=== PATIENT | female | born 1955 | race Caucasian/White ===

== ENCOUNTER → 2019-05-16 | Outpatient (REF) | payer MEDICAID ==
[~2019-05-16] MED LIST: BISO10TA14 PO; CALC1TAB26 PO; CLAR10CA3 PO; LOSA100T8 PO; SYNT88TA2 PO
[2019-05-16 16:46] LABS: BASO # 0.1 10^3/uL (0.0-0.2); BASO % 0.5 % (0.0-1.0); EOS # 0.1 10^3/uL (0.0-0.5); HEMATOCRIT 44.2 % (36.0-47.0); HEMOGLOBIN 14.5 g/dl (12.0-15.5); LYMPH # 3.1 10^3/uL (1.5-5.0); LYMPH % 24.3 % (24.0-44.0); MEAN CORPUSCULAR HGB CONC 32.8 g/dl (32.0-36.5); MEAN CORPUSCULAR VOLUME 97.6 fl (80.0-96.0); MONO # 0.6 10^3/uL (0.0-0.8); MONO % 4.6 % (0.0-5.0); NEUTROPHILS # 8.8 10^3/uL (1.5-8.5); NEUTROPHILS % 69.3 % (36.0-66.0); PLATELET COUNT, AUTOMATED 273 10^3/uL (150-450); RED BLOOD COUNT 4.53 10^6/uL (4.00-5.40); WHITE BLOOD COUNT 12.7 10^3/uL (4.0-10.0)
[2019-05-16 17:23] LABS: BLOOD UREA NITROGEN 18 MG/DL (7-18); CALCIUM LEVEL 9.9 MG/DL (8.8-10.2); CARBON DIOXIDE LEVEL 30 MEQ/L (21-32); CHLORIDE LEVEL 105 MEQ/L (98-107); CREATININE FOR GFR 0.78 MG/DL (0.55-1.30); FREE T4 1.34 NG/DL (0.76-1.46); GLOMERULAR FILTRATION RATE > 60.0 (>45); GLUCOSE, FASTING 83 MG/DL (70-100); POTASSIUM SERUM 4.1 MEQ/L (3.5-5.1); SODIUM LEVEL 140 MEQ/L (136-145); THYROID STIMULATING HORMONE 0.925 uIU/ML (0.358-3.740)
[2019-05-16 18:02] LABS: HEMOGLOBIN A1c 5.5 %
== END ==
LOC: M SFHCCLAY 10:23
PROVIDERS: ATTEND Family Medicine
DX: C49.A0 Gastrointestinal stromal tumor, unspecified site (principal); R59.0 Localized enlarged lymph nodes; E89.0 Postprocedural hypothyroidism; R35.8 Other polyuria; I10 Essential (primary) hypertension

== ENCOUNTER → 2019-05-21 | Outpatient (CLI) | payer MEDICAID ==
--- NOTE | 2019-05-21 12:47 | REP ---
INGUINAL ULTRASOUND: Inguinal ultrasound performed bilaterally. Reportedly, there is a palpable abnormality in the right inguinal region. There appear to be multiple inguinal lymph nodes bilaterally, but these are not significantly enlarged. Three subcentimeter lymph nodes in the right inguinal region are visualized, the largest measuring 9 x 3 x 4 mm and 8 x 4 x 5 mm. On the left, two lymph nodes are seen, the larger measuring 1.3 x 0.4 x 0.5 cm. IMPRESSION: Normal size inguinal lymph nodes bilaterally with normal morphology, all demonstrating fatty amada. Electronically Signed by Shivam Segura MD 05/22/2019 11:19 A
== END ==
LOC: M RAD 11:35
PROVIDERS: ATTEND Family Medicine
DX: R19.09 Other intra-abdominal and pelvic swelling, mass and lump (principal)

== ENCOUNTER → 2019-06-05 | Outpatient (CLI) | payer MEDICAID ==
[2019-06-07 14:22] LABS: HPV HYBRID CAPTURE II Negative (Negative)
== END ==
LOC: M SMT 14:38
PROVIDERS: ATTEND Obstetrics & Gynecology
DX: Z13.79 Encounter for other screening for genetic and chromosomal anomalies (principal)

== ENCOUNTER → 2019-06-13 | Outpatient (CLI) | payer OTHER ==
--- NOTE | 2019-06-13 12:32 | REPMRS ---
Patient History The patient states she had a clinical breast exam in 2018. Patient is postmenopausal, has history of small intestine cancer at age 62, and is nulliparous. Family history of lung cancer in maternal grandmother, lung cancer in mother, lung cancer in brother, ovarian cancer in paternal grandmother. Taking unspecified hormones beginning at age 26. Prior mammo done @ [facility] in 2012 3D TOMOSYNTHESIS WAS PERFORMED. [facility] lifetime risk for breast cancer is 10.1%. Digital Mammo Screening Bilat: June 13, 2019 - Exam #: [id number] Bilateral CC and MLO view(s) were taken. Technologist: Solange Montoya, Technologist Prior study comparison: 2013, bilateral mammogram, performed at [facility]. FINDINGS: The breast tissue is extremely dense which could obscure a lesion on mammography. There has been no change in the appearance of the mammogram from the prior studies. There is a moderate amount of residual fibroglandular tissue which is fairly symmetric. There is no interval development of dominant mass, areas of architectural distortion, or clustered microcalcification typical of malignancy. Assessment: BI-RADS/ACR category 2 mammogram. Benign Findings. Recommendation Routine screening mammogram of both breasts in 1 year (for women over age 40). This mammogram was interpreted with the aid of an FDA-approved computer-aided dectection system. Electronically Signed By: Shivam Segura MD 06/13/19 [id number]
== END ==
LOC: M RAD 10:25
PROVIDERS: ATTEND Obstetrics & Gynecology
DX: Z12.31 Encounter for screening mammogram for malignant neoplasm of breast (principal); Z80.42 Family history of malignant neoplasm of prostate; Z80.1 Family history of malignant neoplasm of trachea, bronchus and lung; Z85.068 Personal history of other malignant neoplasm of small intestine

== ENCOUNTER → 2019-06-25 | Outpatient (REF) | payer OTHER, MEDICAID ==
[~2019-06-25] MED LIST changes: +BISO10TA10 PO; -BISO10TA14 PO
[2019-06-25 16:43] LABS: BASO # 0.1 10^3/uL (0.0-0.2); BASO % 0.6 % (0.0-1.0); EOS # 0.1 10^3/uL (0.0-0.5); EOS % 0.9 % (0.0-3.0); HEMATOCRIT 44.8 % (36.0-47.0); HEMOGLOBIN 14.6 g/dl (12.0-15.5); LYMPH # 3.7 10^3/uL (1.5-5.0); LYMPH % 29.8 % (24.0-44.0); MEAN CORPUSCULAR HEMOGLOBIN 31.8 pg (27.0-33.0); MEAN CORPUSCULAR HGB CONC 32.6 g/dl (32.0-36.5); MEAN CORPUSCULAR VOLUME 97.6 fl (80.0-96.0); MONO # 0.6 10^3/uL (0.0-0.8); MONO % 5.1 % (0.0-5.0); NEUTROPHILS # 7.9 10^3/uL (1.5-8.5); NEUTROPHILS % 63.4 % (36.0-66.0); PLATELET COUNT, AUTOMATED 294 10^3/uL (150-450); RED BLOOD COUNT 4.59 10^6/uL (4.00-5.40); WHITE BLOOD COUNT 12.5 10^3/uL (4.0-10.0)
[2019-06-25 16:58] LABS: ALBUMIN 4.4 GM/DL (3.2-5.2); ALT/SGPT 27 U/L (12-78); BILIRUBIN,TOTAL 0.6 MG/DL (0.2-1.0); BLOOD UREA NITROGEN 14 MG/DL (7-18); CALCIUM LEVEL 9.8 MG/DL (8.8-10.2); CARBON DIOXIDE LEVEL 28 MEQ/L (21-32); CHLORIDE LEVEL 104 MEQ/L (98-107); CREATININE FOR GFR 0.75 MG/DL (0.55-1.30); GLOMERULAR FILTRATION RATE > 60.0 (>45); GLUCOSE, FASTING 80 MG/DL (70-100); POTASSIUM SERUM 4.4 MEQ/L (3.5-5.1); RHEUMATOID FACTOR QUANT < 10.0 IU/ML (<15.0); SODIUM LEVEL 137 MEQ/L (136-145); THYROID STIMULATING HORMONE 0.885 uIU/ML (0.358-3.740); TOTAL 25(OH) VITAMIN D 39.1 NG/ML (30.0-100.0); TOTAL PROTEIN 7.6 GM/DL (6.4-8.2); VITAMIN B12 LEVEL 737 PG/ML
[2019-06-25 16:59] LABS: FOLATE 10.7 NG/ML
[2019-06-25 17:00] LABS: HEMOGLOBIN A1c 5.2 %
[2019-06-25 17:18] LABS: ERYTHROCYTE SEDIMENTATION RATE 15 mm/hr (0-30)
== END ==
LOC: M LABDRAWC 16:03
PROVIDERS: ATTEND Psychiatry & Neurology Neurology
DX: G31.84 Mild cognitive impairment of uncertain or unknown etiology (principal)

== ENCOUNTER → 2019-07-03 | Outpatient (CLI) | payer OTHER ==
--- NOTE | 2019-07-04 05:07 | REP ---
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 Technique: Axial noncontrast images from the thoracic inlet to the upper abdomen with coronal and sagittal re-formations. Comparison: None. Findings: The bilateral lung dejesus are well-aerated and relatively clear. Minimal age-related scattered scarring is appreciated without evidence for consolidation, significant nodule or mass lesion. No pleural effusion. No pneumothorax. Tracheobronchial tree is patent. No obvious axillary, hilar, or mediastinal adenopathy. Mediastinum demonstrates relatively normal thoracic aorta, pulmonary vasculature and heart/pericardium. Musculoskeletal structures are intact and without focal abnormality. Impression: No acute mediastinal or pleuroparenchymal process. No evidence for metastatic disease. Electronically Signed by Jean Pierre River MD 07/04/2019 04:59 A
--- NOTE | 2019-07-04 05:13 | REP ---
Clinical: Gastrointestinal stromal tumor for restaging. Comparison: 04/05/2013. Technique: Axial noncontrast images of the abdomen with coronal and sagittal re-formations. Findings: Lung bases are clear. Liver, spleen, pancreas, gallbladder, right adrenal gland and bilateral kidneys are essentially normal for noncontrast evaluation. Left adrenal gland appears atrophic and calcified suggesting prior insult and stable compared to prior examination. Visualized enteric system is without obvious acute process, but gastric mucosal thickening to the proximal stomach cannot definitively be excluded. No ascites. No definite adenopathy. Abdominal aorta without aneurysm. Musculoskeletal structures are intact. Impression: 1. Cannot exclude gastric mucosal thickening to the proximal stomach which may warrant endoscopic evaluation and correlation. 2. No further acute abdominal pathology appreciated. Electronically Signed by Jean Pierre River MD 07/04/2019 05:05 A
== END ==
LOC: M RAD 08:42
PROVIDERS: ATTEND Internal Medicine Hematology & Oncology
DX: C49.A0 Gastrointestinal stromal tumor, unspecified site (principal)

== ENCOUNTER → 2019-07-09 | Outpatient (CLI) | payer OTHER ==
--- NOTE | 2019-07-09 10:57 | REP ---
Clinical: Pain with recent injury . Technique: AP, lateral, bilateral oblique views right ankle . Findings: No acute fracture or dislocation. Skeletal structures and joint spaces are intact and normal. Ankle mortise appears stable. No subcutaneous emphysema or radiodense foreign body. Impression: No acute fracture dislocation appreciated Electronically Signed by Jean Pierre River MD 07/09/2019 10:48 A
== END ==
LOC: M CLY 10:17
PROVIDERS: ATTEND Family Medicine
DX: M25.571 Pain in right ankle and joints of right foot (principal)

== ENCOUNTER → 2019-09-06 | Outpatient (REF) | payer OTHER | LOC: M LAB REF 10:53 | PROVIDERS: ATTEND Dermatology | DX: L72.0 Epidermal cyst (principal) ==

== ENCOUNTER → 2020-01-06 | Outpatient (REF) | payer OTHER ==
[~2020-01-06] MED LIST changes: -BISO10TA10 PO; +BISO10TA14 PO
[2020-01-06 17:42] LABS: FREE T4 1.53 NG/DL (0.76-1.46); THYROID STIMULATING HORMONE 1.3 uIU/ML (0.358-3.740)
== END ==
LOC: M SFHCCLAY 10:18
PROVIDERS: ATTEND Family Medicine
DX: R23.2 Flushing (principal); R68.89 Other general symptoms and signs

== ENCOUNTER → 2020-01-20 | Outpatient (REF) | payer OTHER ==
[~2020-01-20] MED LIST changes: +ASPI81TA85 PO; +CHAN1PAK13 PO; +FLUO20CA22 PO; +SYNT75TA PO
[2020-01-20 16:41] LABS: BASO # 0.1 10^3/uL (0.0-0.2); BASO % 0.5 % (0.0-1.0); EOS # 0.1 10^3/uL (0.0-0.5); EOS % 1.2 % (0.0-3.0); HEMATOCRIT 40.3 % (36.0-47.0); HEMOGLOBIN 13.3 g/dl (12.0-15.5); LYMPH % 27.2 % (24.0-44.0); MEAN CORPUSCULAR HEMOGLOBIN 31.4 pg (27.0-33.0); MEAN CORPUSCULAR VOLUME 95.3 fl (80.0-96.0); MONO # 0.4 10^3/uL (0.0-0.8); MONO % 3.6 % (0.0-5.0); NEUTROPHILS # 7.5 10^3/uL (1.5-8.5); NEUTROPHILS % 67.2 % (36.0-66.0); PLATELET COUNT, AUTOMATED 266 10^3/uL (150-450); RED BLOOD COUNT 4.23 10^6/uL (4.00-5.40); WHITE BLOOD COUNT 11.1 10^3/uL (4.0-10.0)
[2020-01-20 16:58] LABS: ALBUMIN 4.2 GM/DL (3.2-5.2); ALT/SGPT 36 U/L (12-78); BILIRUBIN,TOTAL 0.5 MG/DL (0.2-1.0); BLOOD UREA NITROGEN 15 MG/DL (7-18); CALCIUM LEVEL 9.1 MG/DL (8.8-10.2); CARBON DIOXIDE LEVEL 31 MEQ/L (21-32); CHLORIDE LEVEL 102 MEQ/L (98-107); CREATININE FOR GFR 0.76 MG/DL (0.55-1.30); FERRITIN 43 NG/ML (8-252); GLOMERULAR FILTRATION RATE > 60.0 (>45); GLUCOSE, FASTING 129 MG/DL (70-100); IRON (FE) 91 UG/DL (50-170); PERCENT SATURATION 26.5 % (13.2-45.0); POTASSIUM SERUM 4.1 MEQ/L (3.5-5.1); SODIUM LEVEL 138 MEQ/L (136-145); TOTAL IRON BINDING CAPACITY 344 UG/DL (250-450)
== END ==
LOC: M SFHCCLAY 15:51
PROVIDERS: ATTEND Internal Medicine Hematology
DX: C49.A2 Gastrointestinal stromal tumor of stomach (principal)

== ENCOUNTER → 2020-06-03 | Outpatient (REF) | payer OTHER ==
[~2020-06-03] MED LIST changes: -ASPI81TA85 PO; +ASPI81TA86 PO; +BISO5TAB14 PO; +ZETI10TA16 PO
[2020-06-03 12:16] LABS: BASO # 0.1 10^3/uL (0.0-0.2); EOS # 0.2 10^3/uL (0.0-0.5); EOS % 2.4 % (0.0-3.0); HEMOGLOBIN 13.2 g/dl (12.0-15.5); LYMPH % 31.8 % (24.0-44.0); MEAN CORPUSCULAR HEMOGLOBIN 31.1 pg (27.0-33.0); MEAN CORPUSCULAR HGB CONC 32.2 g/dl (32.0-36.5); MEAN CORPUSCULAR VOLUME 96.5 fl (80.0-96.0); MONO # 0.3 10^3/uL (0.0-0.8); MONO % 5.5 % (0.0-5.0); NEUTROPHILS # 3.6 10^3/uL (1.5-8.5); PLATELET COUNT, AUTOMATED 307 10^3/uL (150-450); RED BLOOD COUNT 4.25 10^6/uL (4.00-5.40); WHITE BLOOD COUNT 6.2 10^3/uL (4.0-10.0)
[2020-06-03 12:30] LABS: ALBUMIN 3.9 GM/DL (3.2-5.2); ALT/SGPT 34 U/L (12-78); BILIRUBIN,TOTAL 0.5 MG/DL (0.2-1.0); BLOOD UREA NITROGEN 14 MG/DL (7-18); CALCIUM LEVEL 9.4 MG/DL (8.8-10.2); CARBON DIOXIDE LEVEL 29 MEQ/L (21-32); CHLORIDE LEVEL 107 MEQ/L (98-107); CREATININE FOR GFR 0.72 MG/DL (0.55-1.30); FOLLICLE STIMULATING HORMONE 73.4 mIU/mL; FREE T3 2.3 PG/ML (2.2-4.0); GLOMERULAR FILTRATION RATE > 60.0 (>45); GLUCOSE, FASTING 80 MG/DL (70-100); LUTEINIZING HORMONE 35.3 mIU/mL; POTASSIUM SERUM 4.2 MEQ/L (3.5-5.1); SODIUM LEVEL 141 MEQ/L (136-145); TOTAL PROTEIN 6.9 GM/DL (6.4-8.2)
[2020-06-10 00:12] LABS: METANEPHRINE PLASMA 21.6 pg/mL (0.0-88.0); NORMETANEPHRINE PLASMA 130.4 pg/mL (0.0-191.8)
== END ==
LOC: M LABDRAWC 11:44
PROVIDERS: ATTEND Internal Medicine Endocrinology, Diabetes & Metabolism
DX: R61 Generalized hyperhidrosis (principal)

== ENCOUNTER → 2020-06-05 | Outpatient (REF) | payer OTHER ==
[2020-06-05 13:39] LABS: CREATININE, SERUM 0.7 MG/DL (0.6-1.0)
[2020-06-11 12:08] LABS: 5HIAA 24HR URINE 3.8 mg/24 hr (0.0-14.9); 5HIAA TOTAL URINE 5.1 mg/L (Undefined)
== END ==
LOC: M LAB REF 11:17
PROVIDERS: ATTEND Internal Medicine Endocrinology, Diabetes & Metabolism
DX: L74.9 Eccrine sweat disorder, unspecified (principal)

== ENCOUNTER → 2020-06-18 | Outpatient (CLI) | payer OTHER ==
[~2020-06-18] MED LIST changes: -BISO5TAB14 PO; +GASTROGRAFIN SOLUTION 30ML (Q9963) As Ordered ONE; +ISOVUE-370 76% 100ML VIAL As Ordered ONE; -ZETI10TA16 PO
--- NOTE | 2020-06-23 09:39 | REP ---
CT ABDOMEN AND PELVIS AFTER ORAL BOWEL PREPATORY CONTRAST AND INTRAVENOUS CONTRAST ADMINISTRATION IV CONTRAST ADMINISTERED: 100 mL [id number]. COMPARISON EXAMINATION: 07/03/2019 a noncontrast enhanced examination. HISTORY: Patient has a history of a gastrointestinal stromal tumor (GIST) and has undergone surgery since that last exam. FINDINGS: There is no significant change in appearance of the lung bases. The liver, gallbladder, spleen, pancreas, adrenal glands, and kidneys are essentially unchanged. Note is again made of benign left adrenal gland calcification status quo. Surgical clips are seen in the left upper quadrant from previous surgical procedure, the details of which I do not know. The bowel loops and the mesenteries are otherwise unremarkable. There is no free fluid or free air. There is no evidence of a mass or adenopathy. Bone window technique throughout the examination shows the osseous structures to be stable and intact. IMPRESSION: There is no evidence of acute disease. Findings as described above. MTDD
== END ==
LOC: M RAD 12:27
PROVIDERS: ATTEND Surgery
DX: R10.31 Right lower quadrant pain (principal); M25.551 Pain in right hip
CPT/HCPCS: 74177; Q9963; Q9967

== ENCOUNTER → 2020-12-02 | Outpatient (CLI) | payer OTHER ==
[~2020-12-02] MED LIST changes: +BISO5TAB14 PO; -GASTROGRAFIN SOLUTION 30ML (Q9963) As Ordered ONE; -ISOVUE-370 76% 100ML VIAL As Ordered ONE; +ZETI10TA16 PO
--- NOTE | 2020-12-02 14:07 | REP ---
INDICATION: M25.511 RIGHT SHOULDER PAIN COMPARISON: None. TECHNIQUE: Three views right shoulder. FINDINGS: There is no evidence of acute fracture, dislocation, or intrinsic bone disease.There is mild narrowing and spurring at the glenohumeral joint IMPRESSION: No fracture or dislocation. Mild degenerative changes glenohumeral joint. <Electronically signed by Shivam Segura > 12/02/20 2025
--- NOTE | 2020-12-02 14:08 | REP ---
INDICATION: M79.601 RIGHT ARM PAIN COMPARISON: None. TECHNIQUE: Two views right humerus. FINDINGS: There is no evidence of acute fracture, dislocation, or intrinsic bone disease.Mild degenerative changes are seen in the glenohumeral joint. IMPRESSION: No fracture or dislocation. Mild degenerative changes glenohumeral joint. <Electronically signed by Shivam Segura > 12/02/20 [id number]
== END ==
LOC: M CLY 10:56
PROVIDERS: ATTEND Family Medicine
DX: M25.511 Pain in right shoulder (principal); M79.601 Pain in right arm

== ENCOUNTER → 2020-12-31 | Outpatient (REF) | payer OTHER ==
[2020-12-31 16:55] LABS: FREE T4 1.17 NG/DL (0.76-1.46); THYROID STIMULATING HORMONE 2.48 uIU/ML (0.358-3.740)
== END ==
LOC: M SFHCCLAY 12:02
PROVIDERS: ATTEND Family Medicine
DX: E89.0 Postprocedural hypothyroidism (principal)

== ENCOUNTER → 2021-07-01 | Outpatient (CLI) | payer OTHER ==
[~2021-07-01] MED LIST changes: +ASPI81CH33 PO; +ATOR1TAB19 PO; +LOSA25TA14 PO; +PLAV1TAB2 PO
--- NOTE | 2021-07-02 08:58 | DEXAMM ---
INDICATION: ASYMPTOMATIC MENOPAUSE. COMPARISON: 08/21/2018, 01/17/2011, 12/17/2002. TECHNIQUE: Bone density was measured using dual-energy x-ray absorptiometry (DEXA). FINDINGS: AP SPINE L1-L4 BMD 0.832 g/cm2 Young Adult T-Score -2.9 Age Matched Z-Score -1.4. LT FEMUR, TOTAL BMD 0.750 g/cm2 Young Adult T-Score -2.0 Age Matched Z-Score -0.9. LT NECK BMD 0.753 g/cm2 Young Adult T-Score -2.1 Age Matched Z-Score -0.6. RT FEMUR, TOTAL BMD 0.749 g/cm2 Young Adult T-Score -2.1 Age Matched Z-Score -0.9. RT NECK BMD 0.713 g/cm2 Young Adult T-Score -2.3 Age Matched Z-Score -0.9. IMPRESSION: There is osteoporosis of the spine. There is low bone density of the left hip. There is low bone density of the right hip. The density of the spine has decreased 16.1% since the initial exam on 12/17/2002. The density of the spine increased 0.7% since most recent exam on 08/21/2018. The density of the left hip has decreased 18.2% since initial exam on 12/17/2002. The density of the left hip has decreased 3.7% since most recent exam on 08/21/2018. The density of the right hip has decreased 16.2% since the initial exam on 01/17/2011. The density of the right hip has decreased 3.2% since the most recent exam on 08/21/2018. FOLLOW-UP: Recommendation for the next bone density exam: 2 years. <Electronically signed by Shivam Segura > 07/02/21 0813
== END ==
LOC: M WHC 12:33
PROVIDERS: ATTEND Family Medicine
DX: Z78.0 Asymptomatic menopausal state (principal)

== ENCOUNTER → 2021-07-21 | Outpatient (REF) | payer OTHER ==
[2021-07-21 17:09] LABS: BLOOD UREA NITROGEN 17 MG/DL (7-18); CARBON DIOXIDE LEVEL 28 MEQ/L (21-32); CHLORIDE LEVEL 105 MEQ/L (98-107); CREATININE FOR GFR 0.89 MG/DL (0.55-1.30); FREE T4 1.09 NG/DL (0.76-1.46); GLOMERULAR FILTRATION RATE > 60.0 (>45); GLUCOSE, FASTING 74 MG/DL (70-100); POTASSIUM SERUM 4.9 MEQ/L (3.5-5.1); SODIUM LEVEL 139 MEQ/L (136-145)
== END ==
LOC: M SFHCCLAY 11:39
PROVIDERS: ATTEND Family Medicine
DX: I11.9 Hypertensive heart disease without heart failure (principal); E89.0 Postprocedural hypothyroidism

== ENCOUNTER → 2021-11-18 | Outpatient (REF) | payer OTHER ==
[~2021-11-18] MED LIST changes: +LOSA25TA13 PO; -LOSA25TA14 PO
[2021-11-18 16:46] LABS: BLOOD UREA NITROGEN 19 MG/DL (7-18); CALCIUM LEVEL 9.7 MG/DL (8.8-10.2); CARBON DIOXIDE LEVEL 29 MEQ/L (21-32); CHLORIDE LEVEL 105 MEQ/L (98-107); CREATININE FOR GFR 0.82 MG/DL (0.55-1.30); FREE T4 1.22 NG/DL (0.76-1.46); GLOMERULAR FILTRATION RATE > 60.0 (>45); GLUCOSE, FASTING 74 MG/DL (70-100); POTASSIUM SERUM 4.8 MEQ/L (3.5-5.1); SODIUM LEVEL 137 MEQ/L (136-145)
== END ==
LOC: M SFHCCLAY 12:06
PROVIDERS: ATTEND Family Medicine
DX: I11.9 Hypertensive heart disease without heart failure (principal); E89.0 Postprocedural hypothyroidism

== ENCOUNTER → 2021-12-07 | Outpatient (CLI) | payer OTHER | LOC: M RAD 10:09 | PROVIDERS: ATTEND Family Medicine | DX: Z12.2 Encounter for screening for malignant neoplasm of respiratory organs (principal) ==

== ENCOUNTER → 2022-02-20 | Outpatient (CLI) | payer OTHER ==
[~2022-02-20] MED LIST changes: +FLUO10CA18 PO
== END ==
LOC: M LABSMTC 11:05
PROVIDERS: ATTEND Anesthesiology
DX: Z20.828 Contact with and (suspected) exposure to other viral communicable diseases (principal); Z11.59 Encounter for screening for other viral diseases

== ENCOUNTER → 2022-03-06 | Outpatient (CLI) | payer OTHER | LOC: M LABSMTC 11:30 | PROVIDERS: ATTEND Anesthesiology | DX: Z20.828 Contact with and (suspected) exposure to other viral communicable diseases (principal); Z11.59 Encounter for screening for other viral diseases ==

== ENCOUNTER 2022-03-09 12:52 | Day surgery (SDC) | payer OTHER ==
[~2022-03-09] VITALS: Ht 160 cm; Wt 52.1 kg
[~2022-03-09 12:52] MED LIST changes: +NS 1,000 ML IV ONE
[2022-03-09] MEDS ORDERED: ASPI81CH33 PO (13:11)
[2022-03-09] MEDS ORDERED: fentaNYL 100 MCG/2 ML INJECTION As Ordered ONE (13:48)
[2022-03-09] MEDS ORDERED: LIDOCAINE 2% INJ 100 MG/5 ML SYRINGE As Ordered ONE (13:49)
[2022-03-09] MEDS ORDERED: propofoL 200 MG/20 ML VIAL As Ordered ONE (13:51)
[2022-03-09] MEDS ORDERED: ELEVIEW SUBMUCOSAL INJ 10ML AMP As Ordered ONE (14:32)
[2022-03-09 15:15] VITALS: BP 130/80
== END 2022-03-09 15:29 | disposition home or self-care (01) ==
LOC: M OPP 12:52
PROVIDERS: ATTEND Surgery
DX: Z12.11 Encounter for screening for malignant neoplasm of colon (principal); Z86.010 Personal history of colon polyps; D12.2 Benign neoplasm of ascending colon; K57.30 Diverticulosis of large intestine without perforation or abscess without bleeding; K22.89 Other specified disease of esophagus; K31.89 Other diseases of stomach and duodenum; R13.13 Dysphagia, pharyngeal phase; R13.14 Dysphagia, pharyngoesophageal phase; Z86.73 Personal history of transient ischemic attack (TIA), and cerebral infarction without residual deficits; Z79.02 Long term (current) use of antithrombotics/antiplatelets; Z79.82 Long term (current) use of aspirin; Z79.899 Other long term (current) drug therapy; Z88.8 Allergy status to other drugs, medicaments and biological substances; Z91.013 Allergy to seafood; Z87.891 Personal history of nicotine dependence
CPT/HCPCS: 43239; 45381; 45385; 88305; J3010

== ENCOUNTER → 2022-05-31 | Outpatient (CLI) | payer MEDICARE, MEDICAID ==
[~2022-05-31] MED LIST changes: -NS 1,000 ML IV ONE
== END ==
LOC: M CLY 10:00
PROVIDERS: ATTEND Physician Assistant
DX: M25.551 Pain in right hip (principal)

== ENCOUNTER → 2022-08-23 | Outpatient (CLI) | payer MEDICARE, MEDICAID ==
[~2022-08-23] MED LIST changes: +CLOP75TA99 PO; -PLAV1TAB2 PO
== END ==
LOC: M WHC 16:11
PROVIDERS: ATTEND Nurse Practitioner Family
DX: Z12.31 Encounter for screening mammogram for malignant neoplasm of breast (principal)

== ENCOUNTER 2022-10-12 11:21 | Outpatient (RCR) | payer MEDICARE, MEDICAID | END 2022-11-08 | LOC: M PT 11:21 | PROVIDERS: ATTEND Orthopaedic Surgery | DX: M16.11 Unilateral primary osteoarthritis, right hip (principal) ==

== ENCOUNTER → 2022-10-12 | Outpatient (CLI) | payer MEDICARE | LOC: M SOG 08:31 | PROVIDERS: ATTEND Orthopaedic Surgery | DX: M25.551 Pain in right hip (principal) ==

== ENCOUNTER → 2022-10-17 | Outpatient (REF) | payer MEDICARE, MEDICAID | LOC: M SFHCWAGY 18:08 | PROVIDERS: ATTEND Nurse Practitioner Family | DX: Z12.4 Encounter for screening for malignant neoplasm of cervix (principal) | CPT/HCPCS: 87624; G0123 ==

== ENCOUNTER → 2022-10-26 | Outpatient (REF) | payer MEDICARE, MEDICAID ==
[2022-10-26 18:28] LABS: BLOOD UREA NITROGEN 16 MG/DL (9-23); CREATININE FOR GFR 0.72 MG/DL (0.55-1.30); GLOMERULAR FILTRATION RATE > 60.0 (>45)
== END ==
LOC: M LABDRAWC 17:15
PROVIDERS: ATTEND Psychiatry & Neurology Neurology
DX: I10 Essential (primary) hypertension (principal)

== ENCOUNTER → 2022-11-07 | Outpatient (CLI) | payer MEDICARE, OTHER | LOC: M WHC 10:33 | PROVIDERS: ATTEND Nurse Practitioner Family | DX: N95.0 Postmenopausal bleeding (principal) ==

== ENCOUNTER → 2022-11-11 | Outpatient (CLI) | payer MEDICAID, MEDICARE | LOC: M RAD 12:53 | PROVIDERS: ATTEND Orthopaedic Surgery | DX: M16.11 Unilateral primary osteoarthritis, right hip (principal) ==

== ENCOUNTER → 2022-11-18 | Outpatient (REF) | payer MEDICARE, MEDICAID ==
[2022-11-18 17:10] LABS: BASO # 0.1 10^3/uL (0.0-0.2); BASO % 1.5 % (0.0-1.0); EOS # 0.1 10^3/uL (0.0-0.5); EOS % 1.6 % (0.0-3.0); HEMOGLOBIN 13.4 g/dl (12.0-15.5); LYMPH # 2.3 10^3/uL (1.5-5.0); LYMPH % 33.8 % (24.0-44.0); MEAN CORPUSCULAR HEMOGLOBIN 30.7 pg (27.0-33.0); MEAN CORPUSCULAR HGB CONC 31.9 g/dl (32.0-36.5); MEAN CORPUSCULAR VOLUME 96.1 fl (80.0-96.0); MONO # 0.3 10^3/uL (0.0-0.8); MONO % 4.5 % (2.0-8.0); NEUTROPHILS # 3.9 10^3/uL (1.5-8.5); NEUTROPHILS % 58.5 % (36.0-66.0); PLATELET COUNT, AUTOMATED 362 10^3/uL (150-450); RED BLOOD COUNT 4.37 10^6/uL (4.00-5.40); WHITE BLOOD COUNT 6.7 10^3/uL (4.0-10.0)
[2022-11-18 17:40] LABS: ALBUMIN 4.2 G/DL (3.2-5.2); ALKALINE PHOSPHATASE 92 U/L (46-116); ALT/SGPT 17 U/L (7.0-40); AST/SGOT 23 U/L (<34); BILIRUBIN,TOTAL 0.6 MG/DL (0.3-1.2); BLOOD UREA NITROGEN 13 MG/DL (9-23); CALCIUM LEVEL 9.5 MG/DL (8.3-10.6); CARBON DIOXIDE LEVEL 28 MMOL/L (20-31); CHLORIDE LEVEL 101 MMOL/L (98-107); CREATININE FOR GFR 0.79 MG/DL (0.55-1.30); GLOMERULAR FILTRATION RATE > 60.0 (>45); GLUCOSE, FASTING 100 MG/DL (74-106); POTASSIUM SERUM 4.3 MMOL/L (3.5-5.1); SODIUM LEVEL 137 MMOL/L (136-145); TOTAL PROTEIN 7.3 G/DL (5.7-8.2)
== END ==
LOC: M SFHCCLAY 09:39
PROVIDERS: ATTEND Nurse Practitioner Family
DX: Z01.818 Encounter for other preprocedural examination (principal)

== ENCOUNTER → 2023-01-25 | Outpatient (REF) | payer MEDICARE, MEDICAID ==
[~2023-01-25] MED LIST changes: +ACET-683 PO; +BUPR150T12 PO; +EZET10TA21 PO; +PANT40TA29 PO; +TUMS500C PO
[2023-01-25 17:14] LABS: BASO # 0.1 10^3/uL (0.0-0.2); BASO % 1.1 % (0.0-1.0); EOS # 0.1 10^3/uL (0.0-0.5); EOS % 1.9 % (0.0-3.0); HEMATOCRIT 39.2 % (36.0-47.0); HEMOGLOBIN 12.7 g/dl (12.0-15.5); LYMPH # 2.3 10^3/uL (1.5-5.0); LYMPH % 36.2 % (24.0-44.0); MEAN CORPUSCULAR HEMOGLOBIN 31.1 pg (27.0-33.0); MEAN CORPUSCULAR HGB CONC 32.4 g/dl (32.0-36.5); MEAN CORPUSCULAR VOLUME 96.1 fl (80.0-96.0); MONO # 0.3 10^3/uL (0.0-0.8); NEUTROPHILS # 3.6 10^3/uL (1.5-8.5); NEUTROPHILS % 55.6 % (36.0-66.0); PLATELET COUNT, AUTOMATED 338 10^3/uL (150-450); RED BLOOD COUNT 4.08 10^6/uL (4.00-5.40); WHITE BLOOD COUNT 6.5 10^3/uL (4.0-10.0)
[2023-01-25 17:20] LABS: ALBUMIN 4.3 G/DL (3.2-5.2); ALKALINE PHOSPHATASE 86 U/L (46-116); ALT/SGPT 16 U/L (7.0-40); AST/SGOT 19 U/L (<34); BILIRUBIN,TOTAL 0.4 MG/DL (0.3-1.2); BLOOD UREA NITROGEN 15 MG/DL (9-23); CALCIUM LEVEL 9.7 MG/DL (8.3-10.6); CARBON DIOXIDE LEVEL 28 MMOL/L (20-31); CHLORIDE LEVEL 103 MMOL/L (98-107); CREATININE FOR GFR 0.77 MG/DL (0.55-1.30); GLOMERULAR FILTRATION RATE > 60.0 (>45); GLUCOSE, FASTING 91 MG/DL (74-106); SODIUM LEVEL 139 MMOL/L (136-145)
== END ==
LOC: M SFHCCLAY 12:06
PROVIDERS: ATTEND Nurse Practitioner Family
DX: Z01.818 Encounter for other preprocedural examination (principal)

== ENCOUNTER 2023-02-07 06:13 | Day surgery (SDC) | payer MEDICARE, MEDICAID ==
[2023-02-07] VITALS (8 sets, daily range): BP systolic 105–145; BP diastolic 60–83
[~2023-02-07] VITALS: Ht 160 cm; Wt 59.2 kg
[~2023-02-07 06:13] MED LIST changes: +ROPIVA 100MG/KETOR 15MG/EPINEPHRINE 0.3MG IN NS 50ML SYRINGE PA ONE
[2023-02-07] MEDS ORDERED: LR 1,000 ML IV SCH ×2 (06:15→10:10)
[2023-02-07] MEDS ORDERED: oxyCODONE 5MG TAB PO ONE (06:45)
[2023-02-07] MEDS ORDERED: ceFAZolin SOD 2 GM in IV 1 EA IV ONE (06:45)
[2023-02-07] MEDS ORDERED: TRANEXAMIC ACID 100 MG/ML 10ML VIAL IV ONE (06:50)
[2023-02-07] MEDS ORDERED: BISO5TAB14 PO (07:00)
[2023-02-07] MEDS ORDERED: LOSA50TA28 PO (07:00)
[2023-02-07] MEDS ORDERED: ACET-897 PO (07:00)
[2023-02-07] MEDS ORDERED: ASPI-161 PO (07:01)
[2023-02-07] MEDS ORDERED: CLOP75TA2 PO (07:01)
[2023-02-07] MEDS ORDERED: MIDAZOLAM INJ 2MG/2ML VIAL As Ordered ONE (07:02)
[2023-02-07] MEDS ORDERED: propofoL 200 MG/20 ML VIAL As Ordered ONE (07:02)
[2023-02-07] MEDS ORDERED: propofoL 500 MG/50 ML VIAL As Ordered ONE (07:02)
[2023-02-07] MEDS ORDERED: LIDOCAINE 2% 100MG/5ML SDV (FOR ANES.) As Ordered ONE (07:03)
[2023-02-07] MEDS ORDERED: HOME MED LIST COMPLETE! XX SCH (07:05)
[2023-02-07] MEDS ORDERED: KETOROLAC 60MG 2ML VIAL As Ordered ONE (07:07)
[2023-02-07] MEDS ORDERED: ACETAMINOPHEN 1000MG 100ML IV BAG As Ordered ONE (07:08)
[2023-02-07] MEDS ORDERED: TRANEXAMIC ACID 100 MG/ML 10ML VIAL As Ordered ONE (07:14)
[2023-02-07] MEDS ORDERED: fentaNYL 100 MCG/2 ML INJECTION As Ordered ONE (07:28)
[2023-02-07] MEDS ORDERED: ROCURONIUM BROMIDE 50MG/5ML VIAL As Ordered ONE (07:30)
[2023-02-07] MEDS ORDERED: HYDROmorphone HCL 2MG/ML 1ML VIAL As Ordered ONE (08:32)
[2023-02-07] MEDS ORDERED: VANCOMYCIN 1000MG/20ML VIAL As Ordered ONE (08:33)
[2023-02-07] MEDS ORDERED: ePHEDrine SULFATE 25 MG/5 ML(5MG/ML) SYRINGE As Ordered ONE (08:42)
[2023-02-07] MEDS ORDERED: METOCLOPRAMIDE INJ 10MG/2ML VIAL As Ordered ONE (08:57)
[2023-02-07] MEDS ORDERED: LABETALOL 100MG/20ML VIAL As Ordered ONE (09:28)
[2023-02-07] MEDS ORDERED: PHENYLephrine 500MCG 5ML (100MCG/ML) SYRINGE As Ordered ONE (09:50)
[2023-02-07] MEDS ORDERED: oxyCODONE 5MG TAB PO PRN ×2 (10:10→10:25)
[2023-02-07] MEDS ORDERED: HYDROMORPHONE HCL 0.5 MG/ 0.5 ML SYRINGE IV PRN (10:10)
[2023-02-07] MEDS ORDERED: fentaNYL 100 MCG/2 ML INJECTION IV PRN (10:10)
[2023-02-07] MEDS ORDERED: ONDANSETRON 4MG 2ML VIAL IV PRN ×2 (10:10→10:25)
[2023-02-07] MEDS: LR 1,000 ML IV SCH ×2 (10:25→20:25)
[2023-02-07] MEDS ORDERED: SENNA 8.6 MG TAB (SENOKOT) PO PRN (10:25)
[2023-02-07] MEDS ORDERED: SUGAMMADEX SODIUM 500 MG/5 ML VIAL (BRIDION) As Ordered ONE (10:37)
[2023-02-07] MEDS ORDERED: PROMETHAZINE 25MG/ML 1ML VIAL IV PRN (11:15)
[2023-02-07] MEDS: oxyCODONE 5MG TAB PO PRN ×2 (13:18→21:15)
[2023-02-07] MEDS: ceFAZolin SOD 2 GM in IV 1 EA IV SCH (15:54)
[2023-02-07] MEDS: ACETAMINOPHEN TAB 650MG DOSE (2X325MG) PO SCH (17:43)
[2023-02-08] MEDS: ceFAZolin SOD 2 GM in IV 1 EA IV SCH (00:49)
[2023-02-08] MEDS: ACETAMINOPHEN TAB 650MG DOSE (2X325MG) PO SCH ×2 (00:52→05:36)
[2023-02-08 02:07] VITALS: BP 106/59
[2023-02-08] MEDS: oxyCODONE 5MG TAB PO PRN ×2 (02:16→08:37)
[2023-02-08] MEDS: LR 1,000 ML IV SCH ×2 (04:51→06:50)
[2023-02-08 05:39] VITALS: BP 121/64
[2023-02-08 06:09] LABS: HEMATOCRIT 28.7 % (36.0-47.0); HEMOGLOBIN 9.3 g/dl (12.0-15.5); MEAN CORPUSCULAR HEMOGLOBIN 31.2 pg (27.0-33.0); MEAN CORPUSCULAR HGB CONC 32.4 g/dl (32.0-36.5); MEAN CORPUSCULAR VOLUME 96.3 fl (80.0-96.0); PLATELET COUNT, AUTOMATED 245 10^3/uL (150-450); RED BLOOD COUNT 2.98 10^6/uL (4.00-5.40); WHITE BLOOD COUNT 10.7 10^3/uL (4.0-10.0)
[2023-02-08] MEDS ORDERED: OXYC-517 PO (09:30)
[2023-02-08 10:30] VITALS: BP 143/72
== END 2023-02-08 12:20 | disposition home health service (06) ==
LOC: M SDC 06:13 → M RR INP 10:22 → M MS5PR 13:30 → M SDC 02-08 12:20
PROVIDERS: ATTEND Orthopaedic Surgery
DX: M16.11 Unilateral primary osteoarthritis, right hip (principal); I10 Essential (primary) hypertension; E78.5 Hyperlipidemia, unspecified; E03.9 Hypothyroidism, unspecified; I44.7 Left bundle-branch block, unspecified; Z86.73 Personal history of transient ischemic attack (TIA), and cerebral infarction without residual deficits; Z92.3 Personal history of irradiation; Z87.891 Personal history of nicotine dependence; K21.9 Gastro-esophageal reflux disease without esophagitis; F41.9 Anxiety disorder, unspecified; G47.33 Obstructive sleep apnea (adult) (pediatric); Z79.01 Long term (current) use of anticoagulants; Z79.899 Other long term (current) drug therapy; Z91.013 Allergy to seafood
CPT/HCPCS: 27130; 36415; 72170; 76000; 85027; 87635; 96365; 96366; 96375; 97116; 97161; 97165; 97530; C1776; J0131; J0690; J1100; J1170; J1885; J2250; J2370; J2405; J2550; J2765; J3010

== ENCOUNTER → 2023-02-13 | Outpatient (CLI) | payer MEDICARE, MEDICAID ==
[~2023-02-13] MED LIST changes: +ACET-897 PO; +ASPI-161 PO; +CLOP75TA2 PO; +LOSA50TA28 PO; +OXYC-517 PO; -ROPIVA 100MG/KETOR 15MG/EPINEPHRINE 0.3MG IN NS 50ML SYRINGE PA ONE
== END ==
LOC: M SOG 09:16
PROVIDERS: ATTEND Orthopaedic Surgery
DX: Z47.89 Encounter for other orthopedic aftercare (principal)

== ENCOUNTER → 2023-02-17 | Outpatient (CLI) | payer MEDICARE, MEDICAID | LOC: M SOG 08:01 | PROVIDERS: ATTEND Orthopaedic Surgery | DX: Z47.89 Encounter for other orthopedic aftercare (principal) ==

== ENCOUNTER → 2023-02-24 | Outpatient (CLI) | payer MEDICARE, MEDICAID ==
[2023-02-24 13:11] LABS: BASO # 0.1 10^3/uL (0.0-0.2); EOS # 0.2 10^3/uL (0.0-0.5); EOS % 2.8 % (0.0-3.0); HEMATOCRIT 33.3 % (36.0-47.0); HEMOGLOBIN 10.6 g/dl (12.0-15.5); LYMPH # 2.5 10^3/uL (1.5-5.0); LYMPH % 30.1 % (24.0-44.0); MEAN CORPUSCULAR HEMOGLOBIN 31.3 pg (27.0-33.0); MEAN CORPUSCULAR HGB CONC 31.8 g/dl (32.0-36.5); MEAN CORPUSCULAR VOLUME 98.2 fl (80.0-96.0); MONO # 0.5 10^3/uL (0.0-0.8); MONO % 5.6 % (2.0-8.0); NEUTROPHILS % 60.1 % (36.0-66.0); PLATELET COUNT, AUTOMATED 562 10^3/uL (150-450); RED BLOOD COUNT 3.39 10^6/uL (4.00-5.40); WHITE BLOOD COUNT 8.3 10^3/uL (4.0-10.0)
== END ==
LOC: M LAB 12:35
PROVIDERS: ATTEND Orthopaedic Surgery
DX: Z96.641 Presence of right artificial hip joint (principal); K92.1 Melena

== ENCOUNTER → 2023-02-27 | Outpatient (REF) | payer MEDICARE, MEDICAID | LOC: M LAB REF 11:52 | PROVIDERS: ATTEND Orthopaedic Surgery | DX: Z96.641 Presence of right artificial hip joint (principal); K92.1 Melena ==

== ENCOUNTER → 2023-03-03 | Outpatient (CLI) | payer MEDICARE, MEDICAID | LOC: M SOG 08:00 | PROVIDERS: ATTEND Orthopaedic Surgery | DX: Z47.1 Aftercare following joint replacement surgery (principal); Z96.641 Presence of right artificial hip joint ==

== ENCOUNTER → 2023-03-17 | Outpatient (CLI) | payer MEDICARE, MEDICAID | LOC: M SOG 08:51 | PROVIDERS: ATTEND Orthopaedic Surgery | DX: Z47.1 Aftercare following joint replacement surgery (principal) ==

== ENCOUNTER → 2023-04-07 | Outpatient (CLI) | payer MEDICAID, MEDICARE | LOC: M RAD 14:27 | PROVIDERS: ATTEND Nurse Practitioner Family | DX: Z87.891 Personal history of nicotine dependence (principal) ==

== ENCOUNTER → 2023-05-12 | Outpatient (CLI) | payer MEDICARE, OTHER ==
[~2023-05-12] MED LIST changes: +ALIR75PE3; +EZET10TA58 PO; +FERR325T3 PO; +GASTROGRAFIN SOLUTION 30ML As Ordered ONE; +ISOVUE-370 76% 100ML VIAL As Ordered ONE; -ZETI10TA16 PO
== END ==
LOC: M RAD 12:54
PROVIDERS: ATTEND Nurse Practitioner
DX: R14.0 Abdominal distension (gaseous) (principal)
CPT/HCPCS: 74177; Q9963; Q9967

== ENCOUNTER → 2023-06-19 | Outpatient (CLI) | payer MEDICARE, OTHER ==
[~2023-06-19] MED LIST changes: -GASTROGRAFIN SOLUTION 30ML As Ordered ONE; -ISOVUE-370 76% 100ML VIAL As Ordered ONE
== END ==
LOC: M SOG 08:00
PROVIDERS: ATTEND Orthopaedic Surgery
DX: Z47.1 Aftercare following joint replacement surgery (principal); Z96.641 Presence of right artificial hip joint

== ENCOUNTER 2023-08-14 08:51 | Day surgery (SDC) | payer MEDICARE, OTHER ==
[~2023-08-14] VITALS: Ht 160 cm; Wt 58.8 kg
[~2023-08-14 08:51] MED LIST changes: -ALIR75PE3; +ALIR75PE3 SC; +IRON27TA2 PO; +NS 1,000 ML IV ONE
[2023-08-14] MEDS ORDERED: fentaNYL 100 MCG/2 ML INJECTION As Ordered ONE (10:17)
[2023-08-14] MEDS ORDERED: propofoL 500 MG/50 ML VIAL As Ordered ONE (10:17)
[2023-08-14] MEDS ORDERED: LIDOCAINE 2% 100MG/5ML SDV (FOR ANES.) As Ordered ONE (10:17)
[2023-08-14 11:08] VITALS: TEMP 96.9
[2023-08-14 11:23] VITALS: BP 143/65; O2SAT 97
== END 2023-08-14 11:46 | disposition home or self-care (01) ==
LOC: M OPP 08:51
PROVIDERS: ATTEND Internal Medicine Gastroenterology
DX: D12.6 Benign neoplasm of colon, unspecified (principal); K64.4 Residual hemorrhoidal skin tags; K64.8 Other hemorrhoids; K57.30 Diverticulosis of large intestine without perforation or abscess without bleeding; D50.9 Iron deficiency anemia, unspecified; K44.9 Diaphragmatic hernia without obstruction or gangrene; K31.89 Other diseases of stomach and duodenum; K29.70 Gastritis, unspecified, without bleeding; Z87.891 Personal history of nicotine dependence; G47.30 Sleep apnea, unspecified; Z86.73 Personal history of transient ischemic attack (TIA), and cerebral infarction without residual deficits; Z79.1 Long term (current) use of non-steroidal anti-inflammatories (NSAID); Z79.82 Long term (current) use of aspirin; Z79.890 Hormone replacement therapy; Z79.899 Other long term (current) drug therapy; Z91.013 Allergy to seafood; Z91.040 Latex allergy status; Z91.041 Radiographic dye allergy status; Z91.048 Other nonmedicinal substance allergy status
CPT/HCPCS: 43239; 45385; 88305; J3010

== ENCOUNTER → 2023-09-18 | Outpatient (REF) | payer MEDICARE, MEDICAID ==
[~2023-09-18] MED LIST changes: -NS 1,000 ML IV ONE
[2023-09-18 19:28] LABS: THYROID STIMULATING HORMONE 4.327 uIU/ML (0.55-4.78)
[2023-09-18 19:29] LABS: FREE T4 1.29 NG/DL (0.89-1.76)
== END ==
LOC: M SFHCCLAY 11:00
PROVIDERS: ATTEND Nurse Practitioner Family
DX: E89.0 Postprocedural hypothyroidism (principal)

== ENCOUNTER → 2023-11-16 | Outpatient (REF) | payer MEDICARE, MEDICAID ==
[~2023-11-16] MED LIST changes: -ASPI-161 PO; +ASPI-615 PO
[2023-11-16 17:11] LABS: HEMATOCRIT 40.6 % (36.0-47.0); HEMOGLOBIN 13.1 g/dl (12.0-15.5); MEAN CORPUSCULAR HEMOGLOBIN 30.3 pg (27.0-33.0); MEAN CORPUSCULAR HGB CONC 32.3 g/dl (32.0-36.5); PLATELET COUNT, AUTOMATED 369 10^3/uL (150-450); RED BLOOD COUNT 4.32 10^6/uL (4.00-5.40); WHITE BLOOD COUNT 7.4 10^3/uL (4.0-10.0)
[2023-11-16 17:32] LABS: PERCENT SATURATION 35.2 % (13.2-45.0)
[2023-11-16 17:39] LABS: FERRITIN 18.5 NG/ML (7.3-270.7)
== END ==
LOC: M LABDRAWC 16:26
PROVIDERS: ATTEND Nurse Practitioner Family
DX: D50.9 Iron deficiency anemia, unspecified (principal)

== ENCOUNTER → 2023-12-20 | Outpatient (CLI) | payer MEDICARE, MEDICAID | LOC: M SOG 10:53 | PROVIDERS: ATTEND Orthopaedic Surgery | DX: Z96.641 Presence of right artificial hip joint (principal) ==

== ENCOUNTER → 2024-04-05 | Outpatient (CLI) | payer MEDICARE ==
[~2024-04-05] MED LIST changes: +FLUO-290; +FLUO-290 PO; +FLUO-365 PO; -FLUO10CA18 PO; -FLUO20CA22 PO
== END ==
LOC: M WHC 10:28
PROVIDERS: ATTEND Nurse Practitioner Family
DX: Z12.31 Encounter for screening mammogram for malignant neoplasm of breast (principal); Z78.0 Asymptomatic menopausal state; D50.9 Iron deficiency anemia, unspecified; R92.333 Mammographic heterogeneous density, bilateral breasts; M81.0 Age-related osteoporosis without current pathological fracture; M85.851 Other specified disorders of bone density and structure, right thigh; M85.852 Other specified disorders of bone density and structure, left thigh

== ENCOUNTER → 2024-04-05 | Outpatient (REF) | payer MEDICARE, MEDICAID ==
[2024-04-05 18:02] LABS: HEMATOCRIT 40.7 % (36.0-47.0); MEAN CORPUSCULAR HEMOGLOBIN 30.2 pg (27.0-33.0); MEAN CORPUSCULAR HGB CONC 31.9 g/dl (32.0-36.5); MEAN CORPUSCULAR VOLUME 94.7 fl (80.0-96.0); PLATELET COUNT, AUTOMATED 357 10^3/uL (150-450); WHITE BLOOD COUNT 7.9 10^3/uL (4.0-10.0)
[2024-04-05 18:08] LABS: PERCENT SATURATION 23.8 % (13.2-45.0)
[2024-04-05 18:11] LABS: FERRITIN 18.8 NG/ML (7.3-270.7)
== END ==
LOC: M LABDRAWC 16:55 → M LAB REF 16:55
PROVIDERS: ATTEND Nurse Practitioner Family
DX: D50.9 Iron deficiency anemia, unspecified (principal)

== ENCOUNTER → 2024-05-01 | Outpatient (REF) | payer MEDICARE, MEDICAID ==
[2024-05-01 16:40] LABS: BASO # 0.1 10^3/uL (0.0-0.2); BASO % 1.1 % (0.0-1.0); EOS # 0.2 10^3/uL (0.0-0.5); HEMATOCRIT 39.1 % (36.0-47.0); HEMOGLOBIN 12.8 g/dl (12.0-15.5); LYMPH # 2.2 10^3/uL (1.5-5.0); LYMPH % 29.5 % (24.0-44.0); MEAN CORPUSCULAR HEMOGLOBIN 30.8 pg (27.0-33.0); MEAN CORPUSCULAR HGB CONC 32.7 g/dl (32.0-36.5); MEAN CORPUSCULAR VOLUME 94.2 fl (80.0-96.0); MONO # 0.4 10^3/uL (0.0-0.8); MONO % 4.9 % (2.0-8.0); NEUTROPHILS # 4.7 10^3/uL (1.5-8.5); NEUTROPHILS % 61.2 % (36.0-66.0); PLATELET COUNT, AUTOMATED 319 10^3/uL (150-450); RED BLOOD COUNT 4.15 10^6/uL (4.00-5.40); WHITE BLOOD COUNT 7.6 10^3/uL (4.0-10.0)
[2024-05-01 17:05] LABS: ALBUMIN 4.2 G/DL (3.2-5.2); ALKALINE PHOSPHATASE 94 U/L (46-116); ALT/SGPT 18 U/L (7.0-40); AST/SGOT 15 U/L (<34); BILIRUBIN,TOTAL 0.6 MG/DL (0.3-1.2); BLOOD UREA NITROGEN 14 MG/DL (9-23); CALCIUM LEVEL 9.9 MG/DL (8.3-10.6); CARBON DIOXIDE LEVEL 27 MMOL/L (20-31); CHLORIDE LEVEL 107 MMOL/L (98-107); CHOLESTEROL LEVEL 254 MG/DL (<200); CREATININE FOR GFR 0.89 MG/DL (0.55-1.30); GLOMERULAR FILTRATION RATE > 60.0 (>45); GLUCOSE, FASTING 82 MG/DL (74-106); HDL CHOLESTEROL 49.8 MG/DL (>40); NON-HDL-C 204.2 MG/DL; POTASSIUM SERUM 4.6 MMOL/L (3.5-5.1); SODIUM LEVEL 140 MMOL/L (136-145); TOTAL PROTEIN 7.3 G/DL (5.7-8.2); TRIGLYCERIDES LEVEL 216 MG/DL (<150)
[2024-05-01 17:07] LABS: INR 1.03; PARTIAL THROMBOPLASTIN TIME 32.4 SECONDS (24.8-34.2); PROTHROMBIN TIME 13.2 SECONDS (12.5-14.5)
[2024-05-01 17:08] LABS: FREE T4 1.46 NG/DL (0.89-1.76)
== END ==
LOC: M SFHCCLAY 09:47
PROVIDERS: ATTEND Nurse Practitioner Family
DX: Z01.818 Encounter for other preprocedural examination (principal); I77.1 Stricture of artery; E89.0 Postprocedural hypothyroidism; I25.10 Atherosclerotic heart disease of native coronary artery without angina pectoris; K21.9 Gastro-esophageal reflux disease without esophagitis; I10 Essential (primary) hypertension; F32.9 Major depressive disorder, single episode, unspecified; Z78.0 Asymptomatic menopausal state; D50.9 Iron deficiency anemia, unspecified; Z79.01 Long term (current) use of anticoagulants

== ENCOUNTER → 2024-07-09 | Outpatient (REF) | payer MEDICARE, MEDICAID ==
[2024-07-09 17:59] LABS: BASO # 0.1 10^3/uL (0.0-0.2); EOS # 0.2 10^3/uL (0.0-0.5); EOS % 2.7 % (0.0-3.0); HEMATOCRIT 38.5 % (36.0-47.0); HEMOGLOBIN 12.4 g/dl (12.0-15.5); LYMPH # 2.9 10^3/uL (1.5-5.0); LYMPH % 34.1 % (24.0-44.0); MEAN CORPUSCULAR HEMOGLOBIN 30.7 pg (27.0-33.0); MEAN CORPUSCULAR HGB CONC 32.2 g/dl (32.0-36.5); MEAN CORPUSCULAR VOLUME 95.3 fl (80.0-96.0); MONO # 0.5 10^3/uL (0.0-0.8); MONO % 5.6 % (2.0-8.0); NEUTROPHILS # 4.7 10^3/uL (1.5-8.5); NEUTROPHILS % 56.2 % (36.0-66.0); PLATELET COUNT, AUTOMATED 367 10^3/uL (150-450); RED BLOOD COUNT 4.04 10^6/uL (4.00-5.40); WHITE BLOOD COUNT 8.4 10^3/uL (4.0-10.0)
[2024-07-09 18:35] LABS: ALBUMIN 4.2 G/DL (3.2-5.2); BILIRUBIN,TOTAL 0.5 MG/DL (0.3-1.2); CALCIUM LEVEL 10.4 MG/DL (8.3-10.6); CREATININE FOR GFR 0.99 MG/DL (0.55-1.30); GLOMERULAR FILTRATION RATE 59.6 (>45); POTASSIUM SERUM 4.6 MMOL/L (3.5-5.1); TOTAL PROTEIN 7.3 G/DL (5.7-8.2)
== END ==
LOC: M LABDRAWC 16:16
PROVIDERS: ATTEND Nurse Practitioner
DX: C49.A0 Gastrointestinal stromal tumor, unspecified site (principal)

== ENCOUNTER → 2024-07-29 | Outpatient (CLI) | payer MEDICARE, MEDICAID ==
[~2024-07-29] MED LIST changes: +AMLO2.5T3; +BISO10TA13; +GASTROGRAFIN SOLUTION 30ML As Ordered ONE; +ISOVUE-370 76% 100ML VIAL As Ordered ONE
== END ==
LOC: M RAD 13:36
PROVIDERS: ATTEND Specialist
DX: C49.A0 Gastrointestinal stromal tumor, unspecified site (principal)
CPT/HCPCS: 71260; 74177; Q9963; Q9967

== ENCOUNTER → 2024-12-19 | Outpatient (REF) | payer MEDICARE, MEDICAID ==
[~2024-12-19] MED LIST changes: +CLOP75TA2; +EZET10TA21; -GASTROGRAFIN SOLUTION 30ML As Ordered ONE; -ISOVUE-370 76% 100ML VIAL As Ordered ONE
[2024-12-19 19:03] LABS: PERCENT SATURATION 21.8 % (13.2-45.0)
[2024-12-19 19:04] LABS: ALBUMIN 4.1 G/DL (3.2-5.2); BILIRUBIN,TOTAL 0.5 MG/DL (0.3-1.2); CALCIUM LEVEL 9.6 MG/DL (8.3-10.6); CREATININE FOR GFR 0.91 MG/DL (0.55-1.30); GLOMERULAR FILTRATION RATE 69.2 (>45); HEMATOCRIT 35.9 % (36.0-47.0); HEMOGLOBIN 11.3 g/dl (12.0-15.5); MEAN CORPUSCULAR HEMOGLOBIN 30.3 pg (27.0-33.0); MEAN CORPUSCULAR HGB CONC 31.5 g/dl (32.0-36.5); MEAN CORPUSCULAR VOLUME 96.2 fl (80.0-96.0); PLATELET COUNT, AUTOMATED 320 10^3/uL (150-450); POTASSIUM SERUM 4.4 MMOL/L (3.5-5.1); RED BLOOD COUNT 3.73 10^6/uL (4.00-5.40); TOTAL PROTEIN 6.9 G/DL (5.7-8.2)
[2024-12-19 19:05] LABS: FERRITIN 10.3 NG/ML (7.3-270.7); THYROID STIMULATING HORMONE 3.952 uIU/ML (0.55-4.78)
[2024-12-19 19:06] LABS: FREE T4 1.37 NG/DL (0.89-1.76)
[2024-12-19 19:39] LABS: HEMOGLOBIN A1c 4.8 % (4.0-6.0)
== END ==
LOC: M SFHCCLAY 11:09
PROVIDERS: ATTEND Nurse Practitioner Family
DX: I65.23 Occlusion and stenosis of bilateral carotid arteries (principal); I10 Essential (primary) hypertension; D50.9 Iron deficiency anemia, unspecified; Z79.899 Other long term (current) drug therapy

== ENCOUNTER → 2024-12-20 | Outpatient (CLI) | payer MEDICARE, MEDICAID | LOC: M SOG 07:53 | PROVIDERS: ATTEND Orthopaedic Surgery | DX: Z96.641 Presence of right artificial hip joint (principal); Z47.1 Aftercare following joint replacement surgery; M25.552 Pain in left hip ==

== ENCOUNTER → 2025-03-21 | Outpatient (REF) | payer MEDICARE, MEDICAID | LOC: M LAB REF 16:54 | PROVIDERS: ATTEND Orthopaedic Surgery | DX: M16.12 Unilateral primary osteoarthritis, left hip (principal); Z96.641 Presence of right artificial hip joint ==

== ENCOUNTER → 2025-04-10 | Outpatient (CLI) | payer MEDICARE, MEDICAID ==
[2025-04-10 11:59] LABS: BASO # 0.1 10^3/uL (0.0-0.2); BASO % 0.9 % (0.0-1.0); EOS # 0.2 10^3/uL (0.0-0.5); EOS % 2.9 % (0.0-3.0); LYMPH # 1.9 10^3/uL (1.5-5.0); LYMPH % 27.6 % (24.0-44.0); MONO # 0.4 10^3/uL (0.0-0.8); MONO % 5.4 % (2.0-8.0); NEUTROPHILS # 4.4 10^3/uL (1.5-8.5); NEUTROPHILS % 63.1 % (36.0-66.0); PLATELET COUNT, AUTOMATED 322 10^3/uL (150-450)
[2025-04-10 12:10] LABS: INR 0.96
[2025-04-10 12:32] LABS: ALT/SGPT 14 U/L (7.0-40); AST/SGOT 19 U/L (<34); C REACTIVE PROTEIN QUANTITATIV < 0.50 MG/DL (<1.0); CALCIUM LEVEL 9.6 MG/DL (8.3-10.6); CARBON DIOXIDE LEVEL 27 MMOL/L (20-31); CHLORIDE LEVEL 103 MMOL/L (98-107); CREATININE FOR GFR 1.17 MG/DL (0.55-1.30); GLOMERULAR FILTRATION RATE 51.1 (>45); POTASSIUM SERUM 4.4 MMOL/L (3.5-5.1); SODIUM LEVEL 143 MMOL/L (136-145)
[2025-04-10 12:34] LABS: TOTAL 25(OH) VITAMIN D 21.1 NG/ML (20.0-100.0)
[2025-04-10 13:02] LABS: ESTIMATED AVERAGE GLUCOSE 103.0 MG/DL (60-110)
== END ==
LOC: M LAB 10:50
PROVIDERS: ATTEND Orthopaedic Surgery
DX: M16.12 Unilateral primary osteoarthritis, left hip (principal); Z96.641 Presence of right artificial hip joint; Z79.01 Long term (current) use of anticoagulants; Z79.899 Other long term (current) drug therapy

== ENCOUNTER → 2025-06-20 | Outpatient (REF) | payer MEDICARE, MEDICAID ==
[~2025-06-20] MED LIST changes: +ACET32TAB PO; -AMLO2.5T3; +AMLO2.5T3 PO; +ASPI81TA26 PO; -BISO10TA13; +BISO10TA13 PO; +CEFD300CAP PO; +CELE100C PO; +CHOL125C5 PO; -CLOP75TA2; +DOCU100C16 PO; -EZET10TA21; -EZET10TA21 PO; +EZET10TA57 PO; -FLUO-290; +OXYC1TAB23 PO; +SENN-187 PO; +TRAN650T PO; +VITA100093 PO
[2025-06-20 18:35] LABS: BASO # 0.1 10^3/uL (0.0-0.2); BASO % 1.0 % (0.0-1.0); EOS # 0.3 10^3/uL (0.0-0.5); EOS % 3.8 % (0.0-3.0); LYMPH # 2.7 10^3/uL (1.5-5.0); LYMPH % 30.1 % (24.0-44.0); MONO # 0.5 10^3/uL (0.0-0.8); MONO % 5.3 % (2.0-8.0); NEUTROPHILS # 5.3 10^3/uL (1.5-8.5); NEUTROPHILS % 59.5 % (36.0-66.0); PLATELET COUNT, AUTOMATED 383 10^3/uL (150-450)
[2025-06-20 18:42] LABS: ALT/SGPT 18.0 U/L (7.0-40); AST/SGOT 21.0 U/L (<34); CALCIUM LEVEL 9.5 MG/DL (8.3-10.6); CARBON DIOXIDE LEVEL 29.0 MMOL/L (20-31); CHLORIDE LEVEL 104.0 MMOL/L (98-107); CHOLESTEROL LEVEL 168.0 MG/DL (<200); CHOLESTEROL RISK RATIO 3.5 (<5); CREATININE FOR GFR 0.94 MG/DL (0.55-1.30); GLOMERULAR FILTRATION RATE 66.1 (>45); IRON (FE) 57.0 UG/DL (50-170); LDL CHOLESTEROL 67.9 MG/DL (<100); NON-HDL-C 120.1 MG/DL; PERCENT SATURATION 18.1 % (13.2-45.0); POTASSIUM SERUM 3.7 MMOL/L (3.5-5.1); SODIUM LEVEL 142.0 MMOL/L (136-145); TRIGLYCERIDES LEVEL 261.0 MG/DL (<150)
[2025-06-20 18:44] LABS: FREE T4 1.34 NG/DL (0.89-1.76)
[2025-06-20 19:01] LABS: ESTIMATED AVERAGE GLUCOSE 103.0 MG/DL (60-110)
[2025-06-20 20:35] LABS: CALCIUM LEVEL 9.2 MG/DL (8.3-10.6); CARBON DIOXIDE LEVEL 27.0 MMOL/L (20-31); CHLORIDE LEVEL 105.0 MMOL/L (98-107); CREATININE FOR GFR 0.92 MG/DL (0.55-1.30); GLOMERULAR FILTRATION RATE 67.8 (>45); POTASSIUM SERUM 3.7 MMOL/L (3.5-5.1); SODIUM LEVEL 144.0 MMOL/L (136-145)
[2025-06-20 20:37] LABS: FREE T4 1.37 NG/DL (0.89-1.76)
== END ==
LOC: M SFHCCLAY 11:28
PROVIDERS: ATTEND Nurse Practitioner Family
DX: Z00.00 Encounter for general adult medical examination without abnormal findings (principal); I65.23 Occlusion and stenosis of bilateral carotid arteries; M81.0 Age-related osteoporosis without current pathological fracture; E89.0 Postprocedural hypothyroidism; I25.10 Atherosclerotic heart disease of native coronary artery without angina pectoris; K21.9 Gastro-esophageal reflux disease without esophagitis; F32.9 Major depressive disorder, single episode, unspecified; D50.9 Iron deficiency anemia, unspecified; I11.9 Hypertensive heart disease without heart failure; Z79.899 Other long term (current) drug therapy

== ENCOUNTER → 2025-07-04 | Outpatient (CLI) | payer MEDICARE, MEDICAID ==
[~2025-07-04] MED LIST changes: -ACET32TAB PO; -ASPI81TA26 PO; -CEFD300CAP PO; -CELE100C PO; -DOCU100C16 PO; -OXYC1TAB23 PO; -SENN-187 PO; -TRAN650T PO
== END ==
LOC: M WHC 10:34
PROVIDERS: ATTEND Nurse Practitioner Family
DX: Z12.31 Encounter for screening mammogram for malignant neoplasm of breast (principal)

== ENCOUNTER → 2025-07-07 | Outpatient (CLI) | payer MEDICARE, MEDICAID | LOC: M RAD 10:28 | PROVIDERS: ATTEND Orthopaedic Surgery | DX: M16.12 Unilateral primary osteoarthritis, left hip (principal) ==

== ENCOUNTER 2025-07-21 06:09 | Observation (INO) | payer MEDICARE, MEDICAID ==
[~2025-07-21] VITALS: Ht 160 cm; Wt 57.5 kg
[2025-07-21] MEDS: LR 1,000 ML IV SCH ×3 (06:45→14:38)
[2025-07-21] MEDS ORDERED: ONDANSETRON 4MG/2ML VIAL As Ordered ONE (06:52)
[2025-07-21] MEDS ORDERED: LIDOCAINE 2% 100 MG/5 ML SDV (FOR ANES.) As Ordered ONE (06:52)
[2025-07-21] MEDS ORDERED: dexAMETHasone 4 MG/ML 1 ML VIAL As Ordered ONE (06:52)
[2025-07-21] MEDS ORDERED: dexmedeTOMIDine (4 MCG/ML) 200 MCG/50 ML BTL As Ordered ONE (06:52)
[2025-07-21] MEDS ORDERED: ACETAMINOPHEN 1000MG/100ML IV BAG As Ordered ONE (06:52)
[2025-07-21] MEDS ORDERED: MIDAZOLAM INJ 2 MG/2 ML VIAL As Ordered ONE (06:53)
[2025-07-21] MEDS: TRANEXAMIC ACID 100 MG/ML 10ML VIAL As Ordered ONE (07:12)
[2025-07-21] MEDS ORDERED: ASPI81TA26 PO (07:36)
[2025-07-21] MEDS ORDERED: DOCU100C16 PO (07:37)
[2025-07-21] MEDS ORDERED: SENN-187 PO (07:37)
[2025-07-21] MEDS ORDERED: HOME MED LIST COMPLETE! XX SCH (07:40)
[2025-07-21] MEDS ORDERED: ROCURONIUM BROMIDE 50MG/5ML VIAL As Ordered ONE (07:46)
[2025-07-21] MEDS: ceFAZolin SOD 2 GM IV ONCE IV ONE (08:15)
[2025-07-21] MEDS: REK 50ML SYRINGE IA ONE (08:15)
[2025-07-21] MEDS ORDERED: SUGAMMADEX SODIUM 200 MG/2 ML VIAL As Ordered ONE (08:49)
[2025-07-21] MEDS: TRANEXAMIC ACID 100 MG/ML 10ML VIAL IV ONE (08:55)
[2025-07-21] MEDS: VANCOMYCIN 1000MG/20ML VIAL As Ordered ONE (08:56)
[2025-07-21] MEDS ORDERED: HYDROmorphone HCL 2 MG/ML 1 ML VIAL As Ordered ONE (08:57)
[2025-07-21] MEDS ORDERED: HYDROMORPHONE HCL 0.5 MG/0.5 ML SYRINGE IV PRN (11:05)
[2025-07-21] MEDS ORDERED: SENNA 8.6 MG TAB PO PRN (11:15)
[2025-07-21] MEDS ORDERED: ONDANSETRON 4MG/2ML VIAL IV PRN (11:15)
[2025-07-21] MEDS: ONDANSETRON 4MG/2ML VIAL IV PRN (12:35)
[2025-07-21 15:00] VITALS: BP 87/52; TEMP 97.9; O2SAT 98
[2025-07-21 15:30] VITALS: BP 96/48; TEMP 98.1; O2SAT 96
[2025-07-21 16:30] VITALS: BP 125/69; TEMP 98.4; O2SAT 97
[2025-07-21] MEDS: ceFAZolin SODIUM 2 GM in DEXTROSE 5% (D5W) ADV/MINI-BAG 50 ML IV SCH (16:57)
[2025-07-21] MEDS: NS 500 ML IV ONE (16:57)
[2025-07-21 17:30] VITALS: BP 130/60; TEMP 98.1; O2SAT 97
[2025-07-21] MEDS: ACETAMINOPHEN 325 MG TAB PO SCH (18:00)
[2025-07-21 18:30] VITALS: BP 101/65; TEMP 98.2; O2SAT 96
[2025-07-21 19:30] VITALS: BP 105/57; TEMP 98; O2SAT 96
[2025-07-21] MEDS ORDERED: DOCUSATE SODIUM 100 MG CAPSULE PO SCH (21:00)
[2025-07-21] MEDS ORDERED: LOSARTAN 50 MG TABLET PO SCH (21:00)
[2025-07-21] MEDS: DOCUSATE SODIUM 100 MG CAPSULE PO SCH (21:07)
[2025-07-21] MEDS: ASPIRIN 81 MG ENTERIC TABLET PO SCH (21:07)
[2025-07-21] MEDS: PANTOPRAZOLE 40MG TAB PO SCH (21:07)
[2025-07-22] VITALS: TEMP 97.8; O2SAT 92
[2025-07-22 04:00] VITALS: TEMP 97.8; O2SAT 94
[2025-07-22] MEDS: LEVOTHYROXINE 75 MCG TABLET (0.075 MG) PO SCH (06:23)
[2025-07-22 06:29] LABS: PLATELET COUNT, AUTOMATED 281 10^3/uL (150-450)
[2025-07-22 07:03] LABS: ALT/SGPT 13.0 U/L (7.0-40); AST/SGOT 25.0 U/L (<34); CALCIUM LEVEL 9.0 MG/DL (8.3-10.6); CARBON DIOXIDE LEVEL 24.0 MMOL/L (20-31); CHLORIDE LEVEL 105.0 MMOL/L (98-107); CREATININE FOR GFR 0.91 MG/DL (0.55-1.30); GLOMERULAR FILTRATION RATE 68.7 (>45); POTASSIUM SERUM 4.2 MMOL/L (3.5-5.1); SODIUM LEVEL 141.0 MMOL/L (136-145)
[2025-07-22] MEDS: VITAMIN D 1,000 INTERNATIONAL UNITS TABLET PO SCH (08:40)
[2025-07-22] MEDS: FAMOTIDINE 20 MG TAB PO SCH (08:41)
[2025-07-22 08:42] VITALS: BP 115/55
[2025-07-22] MEDS: ASCORBIC ACID 500 MG TAB PO SCH (08:44)
[2025-07-22] MEDS: CLOPIDOGREL 75 MG TAB PO SCH (08:44)
[2025-07-22] MEDS: EZETIMIBE 10 MG TABLET PO SCH (08:44)
[2025-07-22] MEDS: CEFDINIR 300 MG CAP PO SCH (08:44)
[2025-07-22] MEDS: FERROUS SULFATE 325 MG TAB PO SCH (09:00)
[2025-07-22] MEDS: buPROPion **XL** 150 MG TABLET PO SCH (09:00)
[2025-07-22] MEDS ORDERED: CELE100C PO (09:32)
[2025-07-22] MEDS ORDERED: PANT40TA29 PO (09:32)
[2025-07-22] MEDS ORDERED: ACET32TAB PO (09:32)
[2025-07-22] MEDS ORDERED: TRAN650T PO (09:32)
[2025-07-22] MEDS ORDERED: CEFD300CAP PO (09:32)
[2025-07-22] MEDS ORDERED: OXYC1TAB23 PO ×2 (09:32→09:36)
[2025-07-22 10:00] VITALS: BP 140/72; TEMP 98.3; O2SAT 96
== END 2025-07-22 10:59 | disposition home or self-care (01) ==
LOC: M SDC 06:09 → M ED INP 11:15 → M MS5PR 13:40
PROVIDERS: ADMIT Orthopaedic Surgery; ATTEND Orthopaedic Surgery
DX: M16.12 Unilateral primary osteoarthritis, left hip (principal); I10 Essential (primary) hypertension; E03.9 Hypothyroidism, unspecified; E05.90 Thyrotoxicosis, unspecified without thyrotoxic crisis or storm; Z87.891 Personal history of nicotine dependence; Z92.3 Personal history of irradiation; Z86.73 Personal history of transient ischemic attack (TIA), and cerebral infarction without residual deficits; Z85.068 Personal history of other malignant neoplasm of small intestine; J44.9 Chronic obstructive pulmonary disease, unspecified; K21.9 Gastro-esophageal reflux disease without esophagitis; Z79.02 Long term (current) use of antithrombotics/antiplatelets; Z79.899 Other long term (current) drug therapy; G47.33 Obstructive sleep apnea (adult) (pediatric); M81.0 Age-related osteoporosis without current pathological fracture; Z91.041 Radiographic dye allergy status; Z91.013 Allergy to seafood
CPT/HCPCS: 27130; 36415; 72170; 80053; 85027; 86850; 86900; 86901; 88300; 96365; 96366; 96375; 97116; 97161; 97165; 97530; C1776; G0378; J0131; J0165; J0688; J1100; J1171; J1885; J2250; J2405; J2795; J3010; J3373; S2900

== ENCOUNTER → 2025-08-01 | Outpatient (CLI) | payer MEDICARE, MEDICAID ==
[~2025-08-01] MED LIST changes: +ACET32TAB PO; +ASPI81TA26 PO; +CEFD300CAP PO; +CELE100C PO; +DOCU100C16 PO; +OXYC1TAB23 PO; +SENN-187 PO; +TRAN650T PO
== END ==
LOC: M SOG 07:45
PROVIDERS: ATTEND Orthopaedic Surgery
DX: Z47.1 Aftercare following joint replacement surgery (principal)